=== PATIENT | male | born 2000 | race Caucasian/White ===

== ENCOUNTER 2022-06-05 15:49 | Emergency (ER) | payer MEDICAID ==
[2022-06-05 16:32] LABS: BLOOD UREA NITROGEN,BUN 22 mg/dL (7.0-18.0); CHLORIDE,CL 100 mmol/L (98-107); ESTIMATED GFR 89 mL/min (>60); GLUCOSE RANDOM 61 mg/dL (74-106); POTASSIUM,K 3.1 mmol/L (3.5-5.1); SODIUM,NA 138 mmol/L (136-148)
[2022-06-05] MEDS ORDERED: Potassium Chloride 20 MEQ Tab.ER PO STA (16:54)
[2022-06-05] MEDS ORDERED: Sodium Chloride 0.9% 1,000 ML IV STA (16:57)
[2022-06-05 17:07] LABS: CORONAVIRUS COVID-19 NAA NEGATIVE (NEGATIVE); INFLUENZA A NAA NEGATIVE (NEGATIVE); INFLUENZA B NAA NEGATIVE (NEGATIVE)
== END 2022-06-05 17:53 | disposition home or self-care (01) ==
LOC: MW.ED 15:49
DX: R07.9 Chest pain, unspecified (principal); E87.6 Hypokalemia; F15.90 Other stimulant use, unspecified, uncomplicated; F17.210 Nicotine dependence, cigarettes, uncomplicated; Z20.822 Contact with and (suspected) exposure to COVID-19
CPT/HCPCS: 0240U; 36415; 71045; 80053; 80305; 80307; 81001; 83735; 84443; 84484; 85025; 87086; 93005; 99285; A9270; 93010; 99283

== ENCOUNTER 2024-09-30 13:03 | Emergency (ER) | payer MEDICAID ==
[2024-09-30] MEDS: Acetaminophen 500 MG Tab PO ONE (13:31)
[2024-09-30] MEDS: Diphtheria,Pertussis(Acell),Tetanus Vaccine 0.5 ML Syringe IM ONE (13:31)
[2024-09-30] MEDS: Ketorolac 30 MG/ML SDV IM ONE (15:23)
== END 2024-09-30 15:37 | disposition home or self-care (01) ==
LOC: MW.ED 13:03
DX: S02.40CA Maxillary fracture, right side, initial encounter for closed fracture (principal); S02.40EA Zygomatic fracture, right side, initial encounter for closed fracture; S02.631A Fracture of coronoid process of right mandible, initial encounter for closed fracture; S02.85XA Fracture of orbit, unspecified, initial encounter for closed fracture; S05.02XA Injury of conjunctiva and corneal abrasion without foreign body, left eye, initial encounter; G44.319 Acute post-traumatic headache, not intractable; Z79.899 Other long term (current) drug therapy; Z23 Encounter for immunization; Y04.0XXA Assault by unarmed brawl or fight, initial encounter; Y93.89 Activity, other specified
CPT/HCPCS: 70450; 70486; 90471; 96372; 99284; J1885; 99282